=== PATIENT | male | born 1995 | race Caucasian/White ===

== ENCOUNTER 2018-10-19 15:04 | Emergency (ER) | payer OTHER ==
--- NOTE | 2018-10-19 15:20 | EDPHY ---
H & P Time Seen by Provider: 10/19/18 15:12 HPI/ROS: CHIEF COMPLAINT: Seizure HISTORY OF PRESENT ILLNESS: Patient arrives by ambulance after having a seizure graduation. He walked across the stage and then felt funny and did not feel well a little bit lightheaded and then was witnessed to have full body tonic-clonic seizure per EMS. Was initially combative and confused, now just has a little bit of a headache. Of note the patient takes Xanax daily but did not yesterday because he went out drinking with friends and did not today because his family is here. He takes this twice daily usually for anxiety. REVIEW OF SYSTEMS: Eye: no change in vision ENT: no sore throat Cardiac: no chest pain or syncope Pulmonary: no cough or SOB Abdomen: no vomiting, diarrhea, abdominal pain Musculoskeletal: no back pain or neck pain Skin: no rash Neuro: HPI Constitutional: no fever : no urinary symptoms A comprehensive 10 point review of systems is otherwise negative aside from elements mentioned in the history of present illness. PAST MEDICAL HISTORY: Depression and anxiety Social history: Here with his parents, alcohol yesterday, denies drugs General Appearance: Alert and conversant, cooperative. Eyes: No scleral icterus. Ecchymosis below the right orbit. ENT, Mouth: Normal mucous membranes. No tongue laceration or abrasion. Respiratory: Normal respiratory effort, breath sounds equal, lungs are clear to auscultation. Cardiovascular: Regular rate and rhythm. Gastrointestinal: Abdomen is soft and non tender. Neurological: Alert, face symmetric, normal motor and sensory in extremities. Not tremulous. He knows who he is and he recognizes his parents and can answer questions appropriately but does not remember what happened and does not know what day of the week it is. Skin: Warm and dry, no rashes. Ecchymosis below the right orbit. Musculoskeletal: No midline spinal tenderness. Psychiatric: Not agitated. Emergency Department course/MDM: Postictal state, and the description of events would be consistent with grand mal seizure. I think this would be most likely due to sudden cessation of chronic benzodiazepine. EKG, CBC and chemistry, noncontrast head CT. 1634: Zofran for nausea, normal EKG and head CT, CO2 low consistent with recent grand mal seizure. 170: Results discussed, warned no driving, neurology clinic follow-up. He will be staying with his roommates who can keep an eye on him. Patient and parents state they understand diagnostics and plan, are comfortable with discharge at this time. Constitutional: Initial Vital Signs Temperature (C) 36.8 C 10/19/18 15:09 Heart Rate 89 10/19/18 15:09 Respiratory Rate 16 10/19/18 15:09 Blood Pressure 127/78 H 10/19/18 15:09 O2 Sat (%) 100 10/19/18 15:09 O2 Delivery Mode Room Air Allergies/Adverse Reactions: No Known Allergies Allergy (Unverified 10/19/18 15:09) Home Medications: Medication Instructions Recorded Xanax 10/19/18 Medical Decision Making - Diagnostics EKG Interpretation: 12-lead EKG interpreted by me; official reading is in computer system. My interpretation is sinus rhythm rate 74 normal intervals and no ischemic changes. Imaging Results: Imaging Impressions Head CT 10/19/18 15:20 Impression: 1. Normal CT brain without contrast. 2. Consider MRI of the brain, if there is continued clinical concern. Findings and recommendations discussed with Emergency Department physician, JAIRO FERNANDEZ at 15:48 hour, 10/19/2018. Final report concurs with initial preliminary interpretation. Imaging: Discussed imaging studies w/ director call Radiologist Differential Diagnosis: Differential diagnosis considered for a seizure including but not limited to electrolyte abnormality, alcohol withdrawal, medication noncompliance, head injury, and breakthrough seizure. - Data Points Laboratory Results: Laboratory Results 10/19/18 15:38 10/19/18 15:38 10/19/18 10/19/18 15:38 15:38 WBC 14.14 10^3/uL H 10^3/uL (3.80-9.50) RBC 5.33 10^6/uL 10^6/uL (4.40-6.38) Hgb 16.0 g/dL g/dL (13.7-17.5) Hct 46.7 % % (40.0-51.0) MCV 87.6 fL fL (81.5-99.8) MCH 30.0 pg pg (27.9-34.1) MCHC 34.3 g/dL g/dL (32.4-36.7) RDW 12.4 % % (11.5-15.2) Plt Count 253 10^3/uL 10^3/uL (150-400) MPV 10.3 fL fL (8.7-11.7) Neut % (Auto) 88.6 % H % (39.3-74.2) Lymph % (Auto) 6.5 % L % (15.0-45.0) [place] % (Auto) 3.7 % L % (4.5-13.0) Eos % (Auto) 0.1 % L % (0.6-7.6) Baso % (Auto) 0.1 % L % (0.3-1.7) Nucleat RBC Rel Count 0.0 % % (0.0-0.2) Absolute Neuts (auto) 12.52 10^3/uL H 10^3/uL (1.70-6.50) Absolute Lymphs (auto) 0.92 10^3/uL L 10^3/uL (1.00-3.00) Absolute Monos (auto) 0.52 10^3/uL 10^3/uL (0.30-0.80) Absolute Eos (auto) 0.02 10^3/uL L 10^3/uL (0.03-0.40) Absolute Basos (auto) 0.02 10^3/uL 10^3/uL (0.02-0.10) Absolute Nucleated RBC 0.00 10^3/uL 10^3/uL (0-0.01) Immature Gran % 1.0 % % (0.0-1.1) Immature Gran # 0.14 10^3/uL H 10^3/uL (0.00-0.10) Sodium 139 mEq/L mEq/L (135-145) Potassium 4.7 mEq/L mEq/L (3.5-5.2) Chloride 102 mEq/L mEq/L (97-110) Carbon Dioxide 18 mEq/l L mEq/l (22-31) Anion Gap 19 mEq/L H mEq/L (6-14) BUN 17 mg/dL mg/dL (7-23) Creatinine 0.9 mg/dL mg/dL (0.7-1.3) Estimated GFR > 60 Glucose 106 mg/dL H mg/dL (70-100) Calcium 10.4 mg/dL mg/dL (8.5-10.4) Medications Given: Discontinued Medications Ondansetron HCl (Zofran) 4 mg IVP EDNOW ONE Stop: 10/19/18 16:09 Last Admin: 10/19/18 16:12 Dose: 4 mg Departure - Departure Disposition: Home, Routine, Self-Care Clinical Impression: New onset seizure Condition: Good Instructions: New-Onset Seizure in Adults (ED) Additional Instructions: 1. No driving, dangerous activities such as riding a ski lift, swimming in a pool or other behavior that could put you or someone else at risk in the event of a recurrent seizure. You will need to be cleared by a neurologist to resume these activities. 2. Please return to the ED for recurrent seizure, headache, numbness, weakness, altered mental status or other concerns. 3. Please follow up with neurologist you have been referred to this week to schedule a follow-up appointment. Referrals: Naseem Delgado DO [Medical Doctor] - 5-7 days, call for appt.
--- NOTE | 2018-10-19 15:23 | CPEKG ---
Test Reason : OPEN Blood Pressure : / mmHG Vent. Rate : 074 BPM Atrial Rate : 073 BPM P-R Int : 138 ms QRS Dur : 086 ms QT Int : 367 ms P-R-T Axes : 074 059 042 degrees QTc Int : 408 ms Sinus rhythm Confirmed by Sang Mayfield ([id number]) on 10/19/2018 3:22:49 PM Referred By: Sang Mayfield Confirmed By:Sang Mayfield
[2018-10-19 16:02] LABS: PLATELET COUNT 253 10^3/uL (150-400)
[2018-10-19] MEDS ORDERED: ONDANSETRON 4 MG/2 ML VIAL IVP ONE (16:08)
[2018-10-19 16:49] VITALS: BP 134/82
== END 2018-10-19 17:10 | disposition home or self-care (01) ==
DX: R56.9 Unspecified convulsions (principal); F32.9 Major depressive disorder, single episode, unspecified; F41.9 Anxiety disorder, unspecified; Z79.899 Other long term (current) drug therapy
CPT/HCPCS: 96374; J2405